=== PATIENT | male | born 2000 | race African-American/Black ===

== ENCOUNTER 2020-04-27 14:06 | Emergency (ER) | payer SELFPAY ==
--- NOTE | 2020-04-27 15:56 | Emergency Department Report ---
- General Chief complaint: Skin Rash Stated complaint: ALLERGIC REACTION/STEFANIE Time Seen by Provider: 04/27/20 15:51 Source: patient Mode of arrival: Ambulatory Limitations: No Limitations - History of Present Illness Initial comments: Patient is a 20-year-old male presents emergency room with complaints of a possible allergic reaction. Patient states that yesterday morning he woke up and he had a rash present all over his face. He states that he does have a history of acne and intermittently has flares. He states that he currently washes his face with Cetaphil. He denies any new lotions, soaps, detergents, putting anything new on the face. He denies any facial swelling, difficulty swallowing, fever, nausea, vomiting, diarrhea, cough. past medical history of GERD. No allergies to medications. - Related Data Previous Rx's Medication Instructions Recorded Last Taken Type Doxycycline Hyclate 100 mg PO BID 7 Days #14 tablet. 04/27/20 Unknown Rx Erythromycin/Benzoyl Peroxide 1 applicatio TP BID #1 gel..gram. 04/27/20 Unknown Rx [Benzamycin Gel] Allergies Allergy/AdvReac Type Severity Reaction Status Date / Time No Known Allergies Allergy Unverified 04/27/20 14:54 Abscess Boil HPI - HPI Chief Complaint: Skin Rash Stated Complaint: ALLERGIC REACTION/STEFANIE Time Seen by Provider: 04/27/20 15:51 Home Medications: Previous Rx's Medication Instructions Recorded Last Taken Type Doxycycline Hyclate 100 mg PO BID 7 Days #14 tablet. 04/27/20 Unknown Rx Erythromycin/Benzoyl Peroxide 1 applicatio TP BID #1 gel..gram. 04/27/20 Unknown Rx [Benzamycin Gel] Allergies/Adverse Reactions: Allergies Allergy/AdvReac Type Severity Reaction Status Date / Time No Known Allergies Allergy Unverified 04/27/20 14:54 ED Review of Systems ROS: Stated complaint: ALLERGIC REACTION/STEFANIE Other details as noted in HPI Comment: All other systems reviewed and negative ED Past Medical Hx - Past Medical History Previous Medical History?: No - Surgical History Past Surgical History?: No - Medications Home Medications: Home Medications Medication Instructions Recorded Confirmed Last Taken Type Doxycycline Hyclate 100 mg PO BID 7 Days #14 tablet. 04/27/20 Unknown Rx Erythromycin/Benzoyl Peroxide 1 applicatio TP BID #1 gel..gram. 04/27/20 Unknown Rx [Benzamycin Gel] ED Physical Exam - General Limitations: No Limitations General appearance: alert, in no apparent distress - Eye Eye exam: Present: normal appearance - ENT ENT exam: Present: normal orophraynx, mucous membranes moist - Respiratory Respiratory exam: Present: normal lung sounds bilaterally. Absent: respiratory distress, wheezes, rales, rhonchi, stridor, chest wall tenderness, accessory muscle use, decreased breath sounds, prolonged expiratory - Cardiovascular Cardiovascular Exam: Present: regular rate, normal rhythm, normal heart sounds. Absent: systolic murmur, diastolic murmur, rubs, gallop - Neurological Exam Neurological exam: Present: alert, oriented X3 - Psychiatric Psychiatric exam: Present: normal affect, normal mood - Skin Skin exam: Present: warm, dry, other (multiple small pustules present to the fa ce, mild erythema of the face, no facial edema) ED Course Vital Signs 04/27/20 16:40 Temperature 98 F Pulse Rate 70 Respiratory 16 Rate Blood Pressure 106/67 [Left] O2 Sat by Pulse 100 Oximetry ED Medical Decision Making - Medical Decision Making Patient is a 20-year-old male presents emergency room with complaints of a possible allergic reaction. Patient states that yesterday morning he woke up and he had a rash present all over his face. He states that he does have a hi story of acne and intermittently has flares. He states that he currently washes his face with Cetaphil. He denies any new lotions, soaps, detergents, putting anything new on the face. He denies any facial swelling, difficulty swallowing, fever, nausea, vomiting, diarrhea, cough. past medical history of GERD. No allergies to medications. Vitals are normal. On exam:multiple small pustules present to the face, mild erythema of the face, no facial edema. Appears to have diffuse acne breakout on the face, face is covered in small pustules. There are no signs of allergic reaction, no signs of angioedema, no signs of anaphylaxis. Symptoms appear most consistent with diffuse acne. Patient given prescription for doxycycline and Benzamycin gel. Advised patient Please use medication as prescribed. Follow-up with your primary care doctor. Return to emergency room for any new or worsening symptoms. Critical care attestation.: If time is entered above; I have spent that time in minutes in the direct care of this critically ill patient, excluding procedure time. ED Disposition Clinical Impression: Facial rash Disposition: DC-01 TO HOME OR SELFCARE Is pt being admited?: No Does the pt Need Aspirin: No Condition: Stable Instructions: Acne, [id number] Additional Instructions: Please use medication as prescribed. Follow-up with your primary care doctor. Return to emergency room for any new or worsening symptoms. Prescriptions: Erythromycin/Benzoyl Peroxide [Benzamycin Gel] 1 applicatio TP BID #1 gel..gram. Doxycycline Hyclate 100 mg PO BID 7 Days #14 tablet.dr Referrals: RODERICK GALEANO MD [Staff Physician] - 2-3 Days [facility] [Provider Group] - 2-[address] [facility], [LAB/CONTRACT] - 2-3 Days Time of Disposition: 15:57 Print Language: [place]
[2020-04-27 16:41] VITALS: BP 106/67
== END 2020-04-27 16:40 | disposition home or self-care (01) ==
LOC: ED 14:06
DX: R21 Rash and other nonspecific skin eruption (principal)
CPT/HCPCS: 99282